=== PATIENT | female | born 1995 | race African-American/Black ===

== ENCOUNTER 2019-02-01 19:01 | Emergency (ER) | payer BC, OTHER, MEDICAID ==
[~2019-02-01] VITALS: Ht 160 cm; Wt 56.7 kg
[~2019-02-01 19:01] MED LIST: BACTRIM DS TAB1 EACH PO; CLEOCIN HCL300 MG PO; KEFLEX500 M1 PO; NOHOMEMEDICATIONS; PEPCID AC20 MG PO
[2019-02-01 19:22] VITALS: BP 139/88
[2019-02-01] MEDS ORDERED: NEXPLANON68 MG SUBQ (19:25)
[2019-02-01 19:50] LABS: URINE BLOOD NEGATIVE (Negative); URINE CLARITY CLEAR; URINE COLOR YELLOW; URINE GLUCOSE-RANDOM NEGATIVE (Negative); URINE KETONES TRACE (Negative); URINE LEUKOCYTES-REFLEX 1+ (Negative); URINE NITRITE-REFLEX NEGATIVE (Negative); URINE PROTEIN NEGATIVE (Negative); URINE SPECIFIC GRAVITY 1.015 (1.005-1.030)
[2019-02-01 19:51] LABS: URINE BILIRUBIN 1+ (Negative)
[2019-02-01 19:52] LABS: ICTOTEST (BILI CONFIRMATORY) Negative (Negative)
[2019-02-01 19:55] LABS: SQUAMOUS 4-10 Moderate /LPF (0-3); URINE WBC-REFLEX 6-15 Few /HPF (0-5)
[2019-02-01 19:56] LABS: BACTERIA-REFLEX 1-9 Few /HPF (None Seen); CASTS None Seen /LPF (None Seen); CRYSTALS None Seen /LPF (None Seen)
== END 2019-02-01 19:44 | disposition home or self-care (01) ==
LOC: M.ERS 19:01
PROVIDERS: Emergency Medicine
DX: T74.21XA Adult sexual abuse, confirmed, initial encounter (principal); F17.210 Nicotine dependence, cigarettes, uncomplicated

== ENCOUNTER 2020-05-22 17:15 | Emergency (ER) | payer BC ==
[~2020-05-22] VITALS: Ht 160 cm; Wt 63.5 kg
[~2020-05-22 17:15] MED LIST changes: +NEXPLANON68 MG SUBQ
[2020-05-22] MEDS ORDERED: ENBRACE HR SOF1 EACH PO (17:26)
[2020-05-22] MEDS ORDERED: MICONAZOLE3DAY1 EACH VAG (17:59)
[2020-05-22] MEDS ORDERED: LIDOCAINE VISC100 ML SWISH&SPIT (17:59)
[2020-05-22] MEDS ORDERED: PERIDEX15 ML SWISH&SPIT (17:59)
[2020-05-22 18:17] VITALS: BP 115/65
== END 2020-05-22 18:18 | disposition home or self-care (01) ==
LOC: M.ERS 17:15
DX: O23.593 Infection of other part of genital tract in pregnancy, third trimester (principal); O26.893 Other specified pregnancy related conditions, third trimester; K08.89 Other specified disorders of teeth and supporting structures; O99.333 Smoking (tobacco) complicating pregnancy, third trimester; Z3A.28 28 weeks gestation of pregnancy